=== PATIENT | male | born 1935 | race Caucasian/White ===

== ENCOUNTER → 2016-11-09 | Outpatient (CLI) | payer MEDICARE ==
[~2016-11-09] VITALS: Ht 177.8 cm; Wt 97.5 kg
[~2016-11-09] MED LIST: ANOR1AER IN; ASPI81CH PO; CALTCHW5 PO; CENTTAB PO; CHLO125TA PO; FISH100049 PO; MAGN1TAB25 PO; NS 1,000 ML IV SCH; PROPOFOL 200 MG/20 ML VIAL As Ordered ONE; VITA200038 PO
[2016-11-09 11:25] VITALS: BP 105/65
--- NOTE | 2016-11-09 11:29 | ROOR ---
Patient Name: Salvador Main Procedure Date: 11/09/2016 11:03 AM Date of : 1935 Age: 81 Room: [facility] Gender: Male Note Status: Finalized Procedure: Colonoscopy to Cecum Indications: Screening for colorectal malignant neoplasm Providers: Valentin Tripp MD Referring MD: Reina Hicks DO Requesting Provider: Medicines: Monitored Anesthesia Care Complications: No immediate complications. Procedure: Pre-Anesthesia Assessment: - The heart rate, respiratory rate, oxygen saturations, blood pressure, adequacy of pulmonary ventilation, and response to care were monitored throughout the procedure. The Colonoscope was introduced through the anus and advanced to the cecum, identified by appendiceal orifice and ileocecal valve. The colonoscopy was performed without difficulty. The patient tolerated the procedure well. The quality of the bowel preparation was excellent. Findings: The perianal and digital rectal examinations were normal. Non-bleeding internal hemorrhoids were found during retroflexion. The hemorrhoids were small and Grade I (internal hemorrhoids that do not prolapse). No other significant abnormalities were identified in a careful examination of the remainder of the colon. Multiple large diffuse angioectasias with typical arborization were found in the rectum. The exam was otherwise without abnormality. Impression: - Non-bleeding internal hemorrhoids. - Multiple colonic angioectasias. - The examination was otherwise normal. - No specimens collected. - Radiation proctitis. - The exam was otherwise normal to the cecum. Recommendation: - Patient has a contact number available for emergencies. The signs and symptoms of potential delayed complications were discussed with the patient. Return to normal activities tomorrow. Written discharge instructions were provided to the patient. - High fiber diet. - Discharge patient to home. - Continue present medications. - Repeat colonoscopy for symptoms only. - Return to referring physician. - The findings and recommendations were discussed with the patient's family. - Discharge patient to home. Valentin Tripp MD Valentin Tripp MD 11/09/2016 11:28:39 AM This report has been signed electronically. Number of Addenda: 0 Note Initiated On: 11/09/2016 11:03 AM Estimated Blood Loss: Estimated blood loss: none.
== END | disposition home or self-care (01) ==
LOC: M OPP 09:39
PROVIDERS: ATTEND Internal Medicine Gastroenterology
DX: Z12.11 Encounter for screening for malignant neoplasm of colon (principal); K64.0 First degree hemorrhoids; I10 Essential (primary) hypertension; M10.9 Gout, unspecified; M19.90 Unspecified osteoarthritis, unspecified site; J45.909 Unspecified asthma, uncomplicated; Z79.82 Long term (current) use of aspirin; Z79.899 Other long term (current) drug therapy

== ENCOUNTER → 2017-01-23 | Outpatient (REF) | payer MEDICARE ==
[~2017-01-23] MED LIST changes: -NS 1,000 ML IV SCH; -PROPOFOL 200 MG/20 ML VIAL As Ordered ONE
== END ==
LOC: M LAB REF 15:59
PROVIDERS: ATTEND Physician Assistant
DX: R30.0 Dysuria (principal)

== ENCOUNTER → 2017-03-17 | Outpatient (CLI) | payer MEDICARE | LOC: M LAB 07:40 | PROVIDERS: ATTEND Radiology Radiation Oncology | DX: C61 Malignant neoplasm of prostate (principal) ==

== ENCOUNTER → 2017-03-23 | Outpatient (CLI) | payer MEDICARE ==
--- NOTE | 2017-03-24 08:50 | RADONC ---
RADIATION ONCOLOGY FOLLOWUP NOTE DATE: 03/23/2017 CHART NUMBER: [id number] DIAGNOSIS: Prostate cancer. STAGE: I, [id number]. ECOG PERFORMANCE STATUS: 0. FOLLOWUP NOTE: Mr. 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 The patient presents today reporting that he is doing quite well with no complaints at this time related to his radiation therapy or disease. He is having no urinary or bowel difficulties and no bone pain. The patient's review of systems is noncontributory. He denies nausea, vomiting, fevers, chills, night sweats, diplopia, headaches, anxiety or depression, anorexia, weight loss, visual disturbances, chest pain, urinary or bowel difficulties, bone pain, or neurological problems. PHYSICAL EXAMINATION: The patient is a well-developed, well-nourished male in no acute distress. HEENT exam is normocephalic, atraumatic. Extraocular movements are intact. There is no palpable cervical, supraclavicular, infraclavicular, axillary, or inguinal lymphadenopathy present. Lungs are clear to auscultation and percussion. Heart has a regular rate and rhythm. Abdomen is benign with no hepatosplenomegaly, masses, or tenderness. Rectal examination reveals a normal anal sphincter tone. His prostate is smooth with no evidence of nodularity. Skeletal examination reveals no tenderness to pressure or percussion of the bony skeleton. Extremities reveal no clubbing, cyanosis, or edema. Neurologic exam is grossly intact as is the remainder of the physical examination. ASSESSMENT: The patient is clinically RAUL at this time and will be seen by us again in 1 year for further followup. He will also continue to be followed by his other physicians as well. cc: SHELLY Cotton MD
== END ==
LOC: M ONCR 13:57
PROVIDERS: ATTEND Radiology Radiation Oncology
DX: C61 Malignant neoplasm of prostate (principal)

== ENCOUNTER → 2018-03-30 | Outpatient (CLI) | payer MEDICARE ==
[2018-03-30 09:56] LABS: PROSTATIC SPECIFIC AG MONITOR 0.43 NG/ML (< 4.0)
== END ==
LOC: M LAB 09:08
DX: C61 Malignant neoplasm of prostate (principal)
CPT/HCPCS: 84153

== ENCOUNTER → 2018-04-06 | Outpatient (CLI) | payer MEDICARE | LOC: M ONCR 08:46 | DX: C61 Malignant neoplasm of prostate (principal) ==

== ENCOUNTER 2018-06-07 14:29 | Inpatient (IN) | payer MEDICARE ==
[2018-06-07] MEDS: GABAPENTIN 300 MG CAP PO ×2 (16:10→21:34)
[2018-06-07] MEDS: MORPHINE 2 MG/ML 1ML SYRINGE (J2270) IV (16:10)
[2018-06-07] MEDS: ONDANSETRON 4MG/2ML VIAL (J2405) IV (16:10)
[2018-06-07 16:47] LABS: BASO % 0.3 % (0.0-1.0); EOS # 0.1 10^3/uL (0.0-0.50); EOS % 0.7 % (0.0-3.0); HEMOGLOBIN 14.4 g/dl (13.5-17.5); IMMATURE GRANULOCYTE % 0.3 % (0-3.0); LYMPH # 1.1 10^3/uL (1.5-4.5); LYMPH % 15.3 % (24.0-44.0); MEAN CORPUSCULAR HEMOGLOBIN 28.1 pg (27.0-33.0); MEAN CORPUSCULAR HGB CONC 33.5 g/dl (32.0-36.5); MEAN CORPUSCULAR VOLUME 83.8 fl (80.0-96.0); MONO # 0.8 10^3/uL (0.0-0.8); MONO % 10.7 % (0.0-5.0); NEUTROPHILS # 5.3 10^3/uL (1.8-7.7); NEUTROPHILS % 72.7 % (36.0-66.0); PLATELET COUNT, AUTOMATED 188 10^3/uL (150-450); RED BLOOD COUNT 5.13 10^6/uL (4.30-6.10); RED CELL DISTRIBUTION WIDTH 14.2 % (11.5-14.5); WHITE BLOOD COUNT 7.3 10^3/uL (4.0-10.0)
[2018-06-07 17:05] LABS: ANION GAP 7 MEQ/L (8-16); BLOOD UREA NITROGEN 14 MG/DL (7-18); CALCIUM LEVEL 8.8 MG/DL (8.8-10.2); CARBON DIOXIDE LEVEL 32 MEQ/L (21-32); CHLORIDE LEVEL 97 MEQ/L (98-107); CREATININE FOR GFR 1.03 MG/DL (0.70-1.30); GLOMERULAR FILTRATION RATE > 60.0 (>35); GLUCOSE, FASTING 108 MG/DL (70-100); POTASSIUM SERUM 4.4 MEQ/L (3.5-5.1); SODIUM LEVEL 136 MEQ/L (136-145)
[2018-06-07] MEDS: ACYCLOVIR 1,000 MG in D5W 250 ML IV (17:09)
[2018-06-07] MEDS ORDERED: PERCOCET 5MG/325MG TAB PO (17:45)
[2018-06-07] MEDS ORDERED: ONDANSETRON 4MG/2ML VIAL (J2405) IV (17:45)
[2018-06-07] MEDS ORDERED: ONDANSETRON 4 MG TAB (S0181) PO (17:45)
[2018-06-07] MEDS: NS 1,000 ML IV (18:14)
[2018-06-07] MEDS ORDERED: IPRATROPIUM 0.5MG/ALBUTEROL 2.5MG INH SOL UD 3ML (DUONEB)(J7620) NEB (20:30)
[2018-06-07] MEDS ORDERED: METOCLOPRAMIDE INJ 10MG/2ML VIAL (J2765) IV (20:45)
[2018-06-07] MEDS: ERYTHROMYCIN OPHTH OINT OD (21:34)
[2018-06-08] MEDS ORDERED: ACYCLOVIR 1,000 MG in D5W 250 ML IV (01:00)
[2018-06-08] MEDS: ACYCLOVIR 1,000 MG in NS 250 ML IV ×3 (01:26→21:12)
[2018-06-08 06:38] LABS: BASO % 0.3 % (0.0-1.0); EOS # 0.1 10^3/uL (0.0-0.50); EOS % 1.3 % (0.0-3.0); HEMATOCRIT 42.7 % (42.0-52.0); HEMOGLOBIN 14.1 g/dl (13.5-17.5); IMMATURE GRANULOCYTE % 0.3 % (0-3.0); LYMPH # 2.2 10^3/uL (1.5-4.5); LYMPH % 23.1 % (24.0-44.0); MEAN CORPUSCULAR HEMOGLOBIN 27.7 pg (27.0-33.0); MEAN CORPUSCULAR VOLUME 83.9 fl (80.0-96.0); MONO # 1.4 10^3/uL (0.0-0.8); MONO % 14.4 % (0.0-5.0); NEUTROPHILS # 5.7 10^3/uL (1.8-7.7); NEUTROPHILS % 60.6 % (36.0-66.0); PLATELET COUNT, AUTOMATED 184 10^3/uL (150-450); RED BLOOD COUNT 5.09 10^6/uL (4.30-6.10); RED CELL DISTRIBUTION WIDTH 14.3 % (11.5-14.5); WHITE BLOOD COUNT 9.4 10^3/uL (4.0-10.0)
[2018-06-08 06:51] LABS: ANION GAP 7 MEQ/L (8-16); BLOOD UREA NITROGEN 17 MG/DL (7-18); CALCIUM LEVEL 8.5 MG/DL (8.8-10.2); CARBON DIOXIDE LEVEL 30 MEQ/L (21-32); CHLORIDE LEVEL 100 MEQ/L (98-107); CREATININE FOR GFR 1.51 MG/DL (0.70-1.30); GLOMERULAR FILTRATION RATE 47.5 (>35); GLUCOSE, FASTING 106 MG/DL (70-100); MAGNESIUM LEVEL 2.1 MG/DL (1.8-2.4); POTASSIUM SERUM 4.3 MEQ/L (3.5-5.1); SODIUM LEVEL 137 MEQ/L (136-145)
[2018-06-08] MEDS ORDERED: CHLORTHALIDONE 12.5MG PER 1/2 TABLET PO (09:00)
[2018-06-08] MEDS: MAGNESIUM OXIDE 400 MG TAB (MAG-OX) PO (09:41)
[2018-06-08] MEDS: GABAPENTIN 300 MG CAP PO ×3 (09:41→21:12)
[2018-06-08] MEDS: VITAMIN D 1,000 INTERNATIONAL UNITS TABLET PO (09:41)
[2018-06-08] MEDS: OMEGA-3 1050MG CAPSULE PO (09:41)
[2018-06-08] MEDS: TAMSULOSIN 0.4 MG CAP PO (09:41)
[2018-06-08] MEDS: ASPIRIN 81 MG ENTERIC TAB PO (09:41)
[2018-06-08] MEDS: ERYTHROMYCIN OPHTH OINT OD ×4 (09:42→21:12)
[2018-06-08] MEDS: MULTIVITAMINS/MINERALS THERAP 1 TAB PO (09:42)
[2018-06-08] MEDS: NS 1,000 ML IV ×2 (09:46→20:13)
[2018-06-08] MEDS: HEPARIN SOD (PORCINE) 5000 UNITS/ML VIAL SQ ×2 (14:59→21:12)
[2018-06-09] MEDS: HEPARIN SOD (PORCINE) 5000 UNITS/ML VIAL SQ ×3 (05:09→21:03)
[2018-06-09 06:39] LABS: BASO # 0.1 10^3/uL (0.0-0.2); BASO % 0.7 % (0.0-1.0); EOS # 0.3 10^3/uL (0.0-0.50); EOS % 3.2 % (0.0-3.0); HEMATOCRIT 39.1 % (42.0-52.0); HEMOGLOBIN 12.9 g/dl (13.5-17.5); IMMATURE GRANULOCYTE % 0.2 % (0-3.0); LYMPH # 1.4 10^3/uL (1.5-4.5); LYMPH % 16.7 % (24.0-44.0); MEAN CORPUSCULAR HEMOGLOBIN 28.1 pg (27.0-33.0); MEAN CORPUSCULAR VOLUME 85.2 fl (80.0-96.0); MONO # 1.2 10^3/uL (0.0-0.8); MONO % 14.4 % (0.0-5.0); NEUTROPHILS # 5.4 10^3/uL (1.8-7.7); NEUTROPHILS % 64.8 % (36.0-66.0); PLATELET COUNT, AUTOMATED 179 10^3/uL (150-450); RED BLOOD COUNT 4.59 10^6/uL (4.30-6.10); RED CELL DISTRIBUTION WIDTH 14.6 % (11.5-14.5); WHITE BLOOD COUNT 8.4 10^3/uL (4.0-10.0)
[2018-06-09 07:02] LABS: ANION GAP 5 MEQ/L (8-16); BLOOD UREA NITROGEN 21 MG/DL (7-18); CALCIUM LEVEL 8.4 MG/DL (8.8-10.2); CARBON DIOXIDE LEVEL 30 MEQ/L (21-32); CHLORIDE LEVEL 105 MEQ/L (98-107); CREATININE FOR GFR 1.75 MG/DL (0.70-1.30); GLUCOSE, FASTING 97 MG/DL (70-100); MAGNESIUM LEVEL 2.2 MG/DL (1.8-2.4); POTASSIUM SERUM 4.1 MEQ/L (3.5-5.1); SODIUM LEVEL 140 MEQ/L (136-145)
[2018-06-09] MEDS: ACYCLOVIR 1,000 MG in NS 250 ML IV ×2 (08:50→20:20)
[2018-06-09] MEDS: DOXYCYCLINE HYCLATE 100 MG TAB PO (08:51)
[2018-06-09] MEDS: ASPIRIN 81 MG ENTERIC TAB PO (08:51)
[2018-06-09] MEDS: GABAPENTIN 300 MG CAP PO ×2 (08:51→20:20)
[2018-06-09] MEDS: MULTIVITAMINS/MINERALS THERAP 1 TAB PO (08:51)
[2018-06-09] MEDS: VITAMIN D 1,000 INTERNATIONAL UNITS TABLET PO (08:52)
[2018-06-09] MEDS: OMEGA-3 1050MG CAPSULE PO (08:52)
[2018-06-09] MEDS: MAGNESIUM OXIDE 400 MG TAB (MAG-OX) PO (08:52)
[2018-06-09] MEDS: TAMSULOSIN 0.4 MG CAP PO (08:52)
[2018-06-09] MEDS: ERYTHROMYCIN OPHTH OINT OD ×2 (08:52→12:42)
[2018-06-09] MEDS: NS 1,000 ML IV ×2 (08:53→20:20)
[2018-06-09] MEDS: LORazepam 2 MG/ML VIAL (J2060) IV (12:41)
[2018-06-09] MEDS ORDERED: VANCOMYCIN HCL 750 MG, VIAL MATE ADAPTER 1 EACH in D5W 250 ML IV (14:45)
[2018-06-09 15:41] LABS: BASO % 0.3 % (0.0-1.0); EOS # 0.2 10^3/uL (0.0-0.50); HEMATOCRIT 43.1 % (42.0-52.0); HEMOGLOBIN 14.2 g/dl (13.5-17.5); IMMATURE GRANULOCYTE % 0.4 % (0-3.0); LYMPH # 1.5 10^3/uL (1.5-4.5); LYMPH % 16.4 % (24.0-44.0); MEAN CORPUSCULAR HEMOGLOBIN 28.2 pg (27.0-33.0); MEAN CORPUSCULAR HGB CONC 32.9 g/dl (32.0-36.5); MEAN CORPUSCULAR VOLUME 85.7 fl (80.0-96.0); MONO # 1.5 10^3/uL (0.0-0.8); NEUTROPHILS % 64.9 % (36.0-66.0); PLATELET COUNT, AUTOMATED 164 10^3/uL (150-450); RED BLOOD COUNT 5.03 10^6/uL (4.30-6.10); RED CELL DISTRIBUTION WIDTH 14.8 % (11.5-14.5); WHITE BLOOD COUNT 9.2 10^3/uL (4.0-10.0)
[2018-06-09 16:15] LABS: ALBUMIN 2.9 GM/DL (3.2-5.2); ALBUMIN/GLOBULIN RATIO 0.88 (1.00-1.93); ALKALINE PHOSPHATASE 59 U/L (45-117); ALT/SGPT 42 U/L (12-78); ANION GAP 7 MEQ/L (8-16); AST/SGOT 18 U/L (7-37); BILIRUBIN,TOTAL 0.5 MG/DL (0.2-1.0); BLOOD UREA NITROGEN 22 MG/DL (7-18); C REACTIVE PROTEIN QUANTITATIV 7.41 MG/DL (0.00-0.30); CALCIUM LEVEL 8.6 MG/DL (8.8-10.2); CARBON DIOXIDE LEVEL 31 MEQ/L (21-32); CHLORIDE LEVEL 104 MEQ/L (98-107); CK-MB VALUE MASS < 1.0 NG/ML (<3.6); CPK CREATINE PHOSPHOKINASE 42 U/L (39-308); CREATININE FOR GFR 1.91 MG/DL (0.70-1.30); GLOMERULAR FILTRATION RATE 36.2 (>35); GLUCOSE, FASTING 100 MG/DL (70-100); MB/CK RELATIVE INDEX 2.38 (< OR =4); POTASSIUM SERUM 4.2 MEQ/L (3.5-5.1); SODIUM LEVEL 142 MEQ/L (136-145); TOTAL PROTEIN 6.2 GM/DL (6.4-8.2); TROPONIN I 0.02 NG/ML (< 0.10)
[2018-06-09 16:15] LABS: LACTIC ACID SEPSIS PROTOCOL 1.7 MMOL/L (0.4-2.0)
[2018-06-09] MEDS: VANCOMYCIN HCL 1,000 MG, VIAL MATE ADAPTER 1 EACH in D5W 250 ML IV (16:55)
[2018-06-09] MEDS: METOPROLOL 5 MG/5 ML VIAL IV (16:55)
[2018-06-09] MEDS: CIPROFLOXACIN 0.3% OPHTH SOLN 2.5ML OU ×3 (17:02→21:03)
[2018-06-09] MEDS: METOPROLOL TART 25 MG TABLET PO ×2 (18:05→23:35)
[2018-06-09 18:09] LABS: ANION GAP 5 MEQ/L (8-16); BLOOD UREA NITROGEN 22 MG/DL (7-18); CALCIUM LEVEL 8.8 MG/DL (8.8-10.2); CARBON DIOXIDE LEVEL 32 MEQ/L (21-32); CHLORIDE LEVEL 103 MEQ/L (98-107); CREATININE FOR GFR 1.89 MG/DL (0.70-1.30); GLOMERULAR FILTRATION RATE 36.6 (>35); GLUCOSE, FASTING 100 MG/DL (70-100); POTASSIUM SERUM 4.2 MEQ/L (3.5-5.1); SODIUM LEVEL 140 MEQ/L (136-145)
[2018-06-09 18:57] LABS: URIC ACID 6.3 MG/DL (3.5-7.2)
[2018-06-09] MEDS: ACETAMINOPHEN TAB 650MG DOSE (2X325MG) PO (20:19)
[2018-06-09] MEDS: ARIPiprazole 2 MG TAB PO (20:20)
[2018-06-09 23:03] LABS: CK-MB VALUE MASS < 1.0 NG/ML (<3.6); CPK CREATINE PHOSPHOKINASE 39 U/L (39-308); MB/CK RELATIVE INDEX 2.56 (< OR =4); TROPONIN I 0.02 NG/ML (< 0.10)
[2018-06-10] MEDS: CIPROFLOXACIN 0.3% OPHTH SOLN 2.5ML OU ×6 (01:59→21:16)
[2018-06-10] MEDS: METOPROLOL TART 25 MG TABLET PO (05:13)
[2018-06-10 05:37] LABS: BASO % 0.4 % (0.0-1.0); EOS # 0.1 10^3/uL (0.0-0.50); EOS % 0.9 % (0.0-3.0); HEMATOCRIT 36.3 % (42.0-52.0); IMMATURE GRANULOCYTE % 0.6 % (0-3.0); LYMPH # 1.7 10^3/uL (1.5-4.5); LYMPH % 18.4 % (24.0-44.0); MEAN CORPUSCULAR HEMOGLOBIN 27.9 pg (27.0-33.0); MEAN CORPUSCULAR HGB CONC 32.2 g/dl (32.0-36.5); MEAN CORPUSCULAR VOLUME 86.4 fl (80.0-96.0); MONO # 1.3 10^3/uL (0.0-0.8); MONO % 14.5 % (0.0-5.0); NEUTROPHILS # 5.9 10^3/uL (1.8-7.7); NEUTROPHILS % 65.2 % (36.0-66.0); PLATELET COUNT, AUTOMATED 171 10^3/uL (150-450); RED CELL DISTRIBUTION WIDTH 14.7 % (11.5-14.5)
[2018-06-10 05:44] LABS: HEMOGLOBIN 11.7 g/dl (13.5-17.5)
[2018-06-10 05:48] LABS: ANION GAP 6 MEQ/L (8-16); BLOOD UREA NITROGEN 24 MG/DL (7-18); CALCIUM LEVEL 8.2 MG/DL (8.8-10.2); CARBON DIOXIDE LEVEL 28 MEQ/L (21-32); CHLORIDE LEVEL 108 MEQ/L (98-107); CREATININE FOR GFR 1.67 MG/DL (0.70-1.30); GLOMERULAR FILTRATION RATE 42.2 (>35); GLUCOSE, FASTING 113 MG/DL (70-100); MAGNESIUM LEVEL 2.2 MG/DL (1.8-2.4); POTASSIUM SERUM 4.1 MEQ/L (3.5-5.1); SODIUM LEVEL 142 MEQ/L (136-145)
[2018-06-10] MEDS: HEPARIN SOD (PORCINE) 5000 UNITS/ML VIAL SQ ×2 (06:11→15:02)
[2018-06-10] MEDS: NS 500 ML IV (08:17)
[2018-06-10] MEDS: ACYCLOVIR 1,000 MG in NS 250 ML IV ×2 (09:47→20:42)
[2018-06-10] MEDS: MULTIVITAMINS/MINERALS THERAP 1 TAB PO (09:50)
[2018-06-10] MEDS: TAMSULOSIN 0.4 MG CAP PO (09:50)
[2018-06-10] MEDS: OMEGA-3 1050MG CAPSULE PO (09:50)
[2018-06-10] MEDS: VITAMIN D 1,000 INTERNATIONAL UNITS TABLET PO (09:50)
[2018-06-10] MEDS: ASPIRIN 81 MG ENTERIC TAB PO (09:50)
[2018-06-10] MEDS: GABAPENTIN 300 MG CAP PO ×2 (09:51→20:43)
[2018-06-10] MEDS: MAGNESIUM OXIDE 400 MG TAB (MAG-OX) PO (09:51)
[2018-06-10] MEDS: predniSONE 20 MG TAB PO ×2 (11:17→20:43)
[2018-06-10 14:23] LABS: APPEARANCE, URINE HAZY (CLEAR); BACTERIA, URINE AUTO NEGATIVE (NEGATIVE); BILIRUBIN, URINE AUTO NEGATIVE (NEGATIVE); BLOOD, URINE BLOOD NEGATIVE (NEGATIVE); COLOR, URINE YELLOW (YELLOW); GLUCOSE, URINE (UA) AUTO NEGATIVE (NEGATIVE); KETONE, URINE AUTO NEGATIVE (NEGATIVE); LEUKOCYTE ESTERASE, URINE AUTO NEGATIVE (NEGATIVE); MUCUS, URINE SMALL (NEGATIVE); NITRITE, URINE AUTO NEGATIVE (NEGATIVE); PROTEIN, URINE AUTO NEGATIVE (NEGATIVE); RBC, URINE AUTO 1 /HPF (0-3); SQUAMOUS EPITHELIAL CELL UR AU 0 /HPF (0-6); UROBILINOGEN, URINE AUTO 0.2 mg/dL (0.0-2.0); WBC, URINE AUTO 1 /HPF (0-3)
[2018-06-10 14:43] LABS: CREATININE,RANDOM URINE 69.9 MG/DL
[2018-06-10] MEDS: VANCOMYCIN HCL 1,000 MG, VIAL MATE ADAPTER 1 EACH in D5W 250 ML IV (17:06)
[2018-06-10 17:35] LABS: UREA NITROGEN RANDOM URINE 495 MG/DL
[2018-06-10] MEDS ORDERED: HEPARIN SOD (PORCINE) 5000 UNITS/ML VIAL IV (19:15)
[2018-06-10 19:38] LABS: HEMATOCRIT 38.1 % (42.0-52.0); HEMOGLOBIN 12.5 g/dl (13.5-17.5); MEAN CORPUSCULAR HEMOGLOBIN 28.5 pg (27.0-33.0); MEAN CORPUSCULAR HGB CONC 32.8 g/dl (32.0-36.5); PLATELET COUNT, AUTOMATED 190 10^3/uL (150-450); RED BLOOD COUNT 4.38 10^6/uL (4.30-6.10); RED CELL DISTRIBUTION WIDTH 14.8 % (11.5-14.5); WHITE BLOOD COUNT 9.2 10^3/uL (4.0-10.0)
[2018-06-10] MEDS: HEPARIN DRIP 25,000 UNITS in APPROPRIATE DILUENT 1 EA IV (20:00)
[2018-06-10] MEDS: ARIPiprazole 2 MG TAB PO (20:43)
[2018-06-10] MEDS: MUPIROCIN 2% OINT 22 GM TUBE TOP (20:43)
[2018-06-11] MEDS: CIPROFLOXACIN 0.3% OPHTH SOLN 2.5ML OU ×6 (02:14→21:10)
[2018-06-11 04:03] LABS: HEMATOCRIT 34.6 % (42.0-52.0); HEMOGLOBIN 11.4 g/dl (13.5-17.5); IMMATURE GRANULOCYTE % 0.7 % (0-3.0); LYMPH # 1.2 10^3/uL (1.5-4.5); LYMPH % 11.9 % (24.0-44.0); MEAN CORPUSCULAR HEMOGLOBIN 28.2 pg (27.0-33.0); MEAN CORPUSCULAR HGB CONC 32.9 g/dl (32.0-36.5); MEAN CORPUSCULAR VOLUME 85.6 fl (80.0-96.0); MONO # 0.9 10^3/uL (0.0-0.8); MONO % 8.6 % (0.0-5.0); NEUTROPHILS # 8.1 10^3/uL (1.8-7.7); NEUTROPHILS % 78.8 % (36.0-66.0); PLATELET COUNT, AUTOMATED 179 10^3/uL (150-450); RED BLOOD COUNT 4.04 10^6/uL (4.30-6.10); RED CELL DISTRIBUTION WIDTH 14.7 % (11.5-14.5); WHITE BLOOD COUNT 10.3 10^3/uL (4.0-10.0)
[2018-06-11 04:25] LABS: PARTIAL THROMBOPLASTIN TIME 238.3 SECONDS (25.4-37.6)
[2018-06-11 04:30] LABS: ANION GAP 4 MEQ/L (8-16); BLOOD UREA NITROGEN 24 MG/DL (7-18); CALCIUM LEVEL 8.1 MG/DL (8.8-10.2); CARBON DIOXIDE LEVEL 28 MEQ/L (21-32); CHLORIDE LEVEL 105 MEQ/L (98-107); CREATININE FOR GFR 1.44 MG/DL (0.70-1.30); GLOMERULAR FILTRATION RATE 50.1 (>35); GLUCOSE, FASTING 138 MG/DL (70-100); MAGNESIUM LEVEL 2.2 MG/DL (1.8-2.4); POTASSIUM SERUM 4.2 MEQ/L (3.5-5.1); SODIUM LEVEL 137 MEQ/L (136-145)
[2018-06-11] MEDS: MAGNESIUM OXIDE 400 MG TAB (MAG-OX) PO (08:28)
[2018-06-11] MEDS: VITAMIN D 1,000 INTERNATIONAL UNITS TABLET PO (08:28)
[2018-06-11] MEDS: ASPIRIN 81 MG ENTERIC TAB PO (08:29)
[2018-06-11] MEDS: OMEGA-3 1050MG CAPSULE PO (08:29)
[2018-06-11] MEDS: GABAPENTIN 300 MG CAP PO ×2 (08:29→21:09)
[2018-06-11] MEDS: MULTIVITAMINS/MINERALS THERAP 1 TAB PO (08:29)
[2018-06-11] MEDS: predniSONE 20 MG TAB PO ×2 (08:29→21:09)
[2018-06-11] MEDS: TAMSULOSIN 0.4 MG CAP PO (08:29)
[2018-06-11] MEDS: ACYCLOVIR 1,000 MG in NS 250 ML IV ×2 (08:29→21:10)
[2018-06-11] MEDS: MUPIROCIN 2% OINT 22 GM TUBE TOP ×2 (08:30→21:11)
[2018-06-11 09:33] LABS: PARTIAL THROMBOPLASTIN TIME 116.7 SECONDS (25.4-37.6)
[2018-06-11] MEDS: HEPARIN DRIP 25,000 UNITS in APPROPRIATE DILUENT 1 EA IV (12:48)
[2018-06-11] MEDS: ceFAZolin SOD 1 GM in D5W MINI-BAG PLUS 50 ML IV ×2 (12:49→20:12)
[2018-06-11 16:13] LABS: PARTIAL THROMBOPLASTIN TIME 97.2 SECONDS (25.4-37.6)
[2018-06-11 19:30] LABS: PARTIAL THROMBOPLASTIN TIME 66.6 SECONDS (25.4-37.6)
[2018-06-11] MEDS: MIRALAX *UNIT DOSE* 17GM PACKET PO (21:09)
[2018-06-11] MEDS: DOCUSATE SODIUM 100 MG CAP PO (21:09)
[2018-06-11] MEDS: ARIPiprazole 2 MG TAB PO (21:09)
[2018-06-12] MEDS: CIPROFLOXACIN 0.3% OPHTH SOLN 2.5ML OU ×6 (02:00→21:12)
[2018-06-12] MEDS: ceFAZolin SOD 1 GM in D5W MINI-BAG PLUS 50 ML IV ×2 (04:38→11:41)
[2018-06-12 05:13] LABS: HEMATOCRIT 33.3 % (42.0-52.0); HEMOGLOBIN 10.9 g/dl (13.5-17.5); IMMATURE GRANULOCYTE % 1.1 % (0-3.0); LYMPH # 1.2 10^3/uL (1.5-4.5); MEAN CORPUSCULAR HEMOGLOBIN 27.9 pg (27.0-33.0); MEAN CORPUSCULAR HGB CONC 32.7 g/dl (32.0-36.5); MEAN CORPUSCULAR VOLUME 85.2 fl (80.0-96.0); MONO # 0.6 10^3/uL (0.0-0.8); MONO % 6.5 % (0.0-5.0); NEUTROPHILS # 7.7 10^3/uL (1.8-7.7); NEUTROPHILS % 80.4 % (36.0-66.0); PLATELET COUNT, AUTOMATED 222 10^3/uL (150-450); RED BLOOD COUNT 3.91 10^6/uL (4.30-6.10); RED CELL DISTRIBUTION WIDTH 15.1 % (11.5-14.5); WHITE BLOOD COUNT 9.6 10^3/uL (4.0-10.0)
[2018-06-12 05:30] LABS: ANION GAP 7 MEQ/L (8-16); BLOOD UREA NITROGEN 26 MG/DL (7-18); CALCIUM LEVEL 8.6 MG/DL (8.8-10.2); CARBON DIOXIDE LEVEL 28 MEQ/L (21-32); CHLORIDE LEVEL 107 MEQ/L (98-107); CREATININE FOR GFR 1.36 MG/DL (0.70-1.30); GLOMERULAR FILTRATION RATE 53.5 (>35); GLUCOSE, FASTING 135 MG/DL (70-100); MAGNESIUM LEVEL 2.5 MG/DL (1.8-2.4); POTASSIUM SERUM 4.1 MEQ/L (3.5-5.1); SODIUM LEVEL 142 MEQ/L (136-145)
[2018-06-12 05:31] LABS: PARTIAL THROMBOPLASTIN TIME 76.9 SECONDS (25.4-37.6)
[2018-06-12] MEDS: predniSONE 20 MG TAB PO (08:11)
[2018-06-12] MEDS: GABAPENTIN 300 MG CAP PO ×2 (08:12→21:11)
[2018-06-12] MEDS: OMEGA-3 1050MG CAPSULE PO (08:12)
[2018-06-12] MEDS: VITAMIN D 1,000 INTERNATIONAL UNITS TABLET PO (08:12)
[2018-06-12] MEDS: MIRALAX *UNIT DOSE* 17GM PACKET PO ×2 (08:12→21:11)
[2018-06-12] MEDS: MULTIVITAMINS/MINERALS THERAP 1 TAB PO (08:12)
[2018-06-12] MEDS: ALLOPURINOL 100 MG TAB PO (08:12)
[2018-06-12] MEDS: TAMSULOSIN 0.4 MG CAP PO (08:12)
[2018-06-12] MEDS: ASPIRIN 81 MG ENTERIC TAB PO (08:12)
[2018-06-12] MEDS: DOCUSATE SODIUM 100 MG CAP PO ×2 (08:12→21:11)
[2018-06-12] MEDS: ACYCLOVIR 1,000 MG in NS 250 ML IV (08:13)
[2018-06-12] MEDS: MUPIROCIN 2% OINT 22 GM TUBE TOP ×2 (08:14→21:12)
[2018-06-12] MEDS: MAGNESIUM OXIDE 400 MG TAB (MAG-OX) PO (09:00)
[2018-06-12] MEDS: amLODIPine 5 MG TAB PO (11:42)
[2018-06-12 17:26] LABS: CSF TUBE# GLU TUBE 2; CSF TUBE# TP TUBE 2; GLUCOSE CSF 71 MG/DL (40-75); TOTAL PROTEIN,CSF 29.3 MG/DL (15-45)
[2018-06-12 17:49] LABS: CSF MONONUCLEAR CELL % 97.8 % (0-0); CSF POLYMORPHONUCLEAR CELL % 2.2 % (0-0); CSF RBC < 2 10^3/uL (<2); CSF WBC 45 /uL (0-10)
[2018-06-12 17:50] LABS: CSF RBC < 2 10^3/uL (<2); CSF WBC 51 /uL (0-10)
[2018-06-12 17:55] LABS: APPEARANCE, CSF CLEAR (CLEAR); COLOR, CSF COLORLESS (COLORLESS); CSF DIFF IF INDICATED? YES (NO); CSF TUBE# CELL CNT TUBE 4
[2018-06-12 17:56] LABS: APPEARANCE, CSF CLEAR (CLEAR); COLOR, CSF COLORLESS (COLORLESS); CSF DIFF IF INDICATED? YES (NO); CSF TUBE# CELL CNT TUBE 1
[2018-06-12] MEDS: ARIPiprazole 2 MG TAB PO (21:11)
[2018-06-12] MEDS: ACETAMINOPHEN TAB 650MG DOSE (2X325MG) PO (21:12)
[2018-06-13] MEDS: CIPROFLOXACIN 0.3% OPHTH SOLN 2.5ML OU (01:58)
[2018-06-13] MEDS: GENTAMICIN 0.3% OPHTH SOL 5 ML BTL OU ×5 (05:36→21:46)
[2018-06-13 05:49] LABS: BASO % 0.1 % (0.0-1.0); EOS # 0.1 10^3/uL (0.0-0.50); EOS % 0.7 % (0.0-3.0); HEMATOCRIT 32.6 % (42.0-52.0); HEMOGLOBIN 10.9 g/dl (13.5-17.5); IMMATURE GRANULOCYTE % 1.3 % (0-3.0); LYMPH # 1.4 10^3/uL (1.5-4.5); MEAN CORPUSCULAR HEMOGLOBIN 28.2 pg (27.0-33.0); MEAN CORPUSCULAR HGB CONC 33.4 g/dl (32.0-36.5); MEAN CORPUSCULAR VOLUME 84.2 fl (80.0-96.0); MONO # 0.7 10^3/uL (0.0-0.8); MONO % 10.7 % (0.0-5.0); NEUTROPHILS # 4.5 10^3/uL (1.8-7.7); NEUTROPHILS % 66.2 % (36.0-66.0); PLATELET COUNT, AUTOMATED 226 10^3/uL (150-450); RED BLOOD COUNT 3.87 10^6/uL (4.30-6.10); RED CELL DISTRIBUTION WIDTH 15.5 % (11.5-14.5); WHITE BLOOD COUNT 6.8 10^3/uL (4.0-10.0)
[2018-06-13 06:15] LABS: ANION GAP 8 MEQ/L (8-16); BLOOD UREA NITROGEN 32 MG/DL (7-18); C REACTIVE PROTEIN QUANTITATIV 6.69 MG/DL (0.00-0.30); CALCIUM LEVEL 8.5 MG/DL (8.8-10.2); CARBON DIOXIDE LEVEL 27 MEQ/L (21-32); CHLORIDE LEVEL 107 MEQ/L (98-107); CREATININE FOR GFR 1.29 MG/DL (0.70-1.30); GLOMERULAR FILTRATION RATE 56.9 (>35); GLUCOSE, FASTING 85 MG/DL (70-100); MAGNESIUM LEVEL 2.2 MG/DL (1.8-2.4); POTASSIUM SERUM 4.2 MEQ/L (3.5-5.1); SODIUM LEVEL 142 MEQ/L (136-145)
[2018-06-13] MEDS: MUPIROCIN 2% OINT 22 GM TUBE TOP ×2 (09:22→20:11)
[2018-06-13] MEDS: ASPIRIN 81 MG ENTERIC TAB PO (09:23)
[2018-06-13] MEDS: VITAMIN D 1,000 INTERNATIONAL UNITS TABLET PO (09:23)
[2018-06-13] MEDS: amLODIPine 5 MG TAB PO (09:23)
[2018-06-13] MEDS: OMEGA-3 1050MG CAPSULE PO (09:24)
[2018-06-13] MEDS: DOCUSATE SODIUM 100 MG CAP PO ×2 (09:24→20:12)
[2018-06-13] MEDS: MAGNESIUM OXIDE 400 MG TAB (MAG-OX) PO (09:24)
[2018-06-13] MEDS: APIXABAN 2.5 MG TAB (ELIQUIS) PO ×2 (09:24→20:13)
[2018-06-13] MEDS: TAMSULOSIN 0.4 MG CAP PO (09:24)
[2018-06-13] MEDS: GABAPENTIN 300 MG CAP PO ×2 (09:24→20:13)
[2018-06-13] MEDS: ALLOPURINOL 100 MG TAB PO (09:24)
[2018-06-13] MEDS: MULTIVITAMINS/MINERALS THERAP 1 TAB PO (09:25)
[2018-06-13] MEDS: predniSONE 20 MG TAB PO (09:25)
[2018-06-13] MEDS: MIRALAX *UNIT DOSE* 17GM PACKET PO ×2 (09:25→20:11)
[2018-06-13] MEDS: ACETAMINOPHEN TAB 650MG DOSE (2X325MG) PO ×2 (09:31→20:13)
[2018-06-13] MEDS: ACYCLOVIR 1,000 MG in D5W 250 ML IV ×2 (11:14→21:46)
[2018-06-13] MEDS ORDERED: LIDOCAINE 1% MDV 20ML VIAL As Ordered (14:42)
[2018-06-13] MEDS: SODIUM CHLORIDE 0.9% INJ 10 ML SYR IV (19:09)
[2018-06-13] MEDS: ARIPiprazole 2 MG TAB PO (20:13)
[2018-06-14] MEDS: ACETAMINOPHEN TAB 650MG DOSE (2X325MG) PO ×4 (00:55→21:24)
[2018-06-14] MEDS: GENTAMICIN 0.3% OPHTH SOL 5 ML BTL OU ×6 (01:00→21:23)
[2018-06-14] MEDS: SODIUM CHLORIDE 0.9% INJ 10 ML SYR IV ×3 (05:52→17:08)
[2018-06-14 06:11] LABS: BASO % 0.1 % (0.0-1.0); EOS # 0.1 10^3/uL (0.0-0.50); EOS % 1.5 % (0.0-3.0); HEMATOCRIT 32.4 % (42.0-52.0); HEMOGLOBIN 10.5 g/dl (13.5-17.5); IMMATURE GRANULOCYTE % 0.9 % (0-3.0); LYMPH # 1.6 10^3/uL (1.5-4.5); LYMPH % 19.3 % (24.0-44.0); MEAN CORPUSCULAR HEMOGLOBIN 28.1 pg (27.0-33.0); MEAN CORPUSCULAR HGB CONC 32.4 g/dl (32.0-36.5); MEAN CORPUSCULAR VOLUME 86.6 fl (80.0-96.0); MONO # 0.9 10^3/uL (0.0-0.8); MONO % 10.4 % (0.0-5.0); NEUTROPHILS # 5.5 10^3/uL (1.8-7.7); NEUTROPHILS % 67.8 % (36.0-66.0); PLATELET COUNT, AUTOMATED 227 10^3/uL (150-450); RED BLOOD COUNT 3.74 10^6/uL (4.30-6.10); RED CELL DISTRIBUTION WIDTH 15.6 % (11.5-14.5); WHITE BLOOD COUNT 8.1 10^3/uL (4.0-10.0)
[2018-06-14 06:30] LABS: C REACTIVE PROTEIN QUANTITATIV 4.93 MG/DL (0.00-0.30)
[2018-06-14 06:31] LABS: ANION GAP 7 MEQ/L (8-16); BLOOD UREA NITROGEN 31 MG/DL (7-18); CALCIUM LEVEL 8.3 MG/DL (8.8-10.2); CARBON DIOXIDE LEVEL 31 MEQ/L (21-32); CHLORIDE LEVEL 106 MEQ/L (98-107); CREATININE FOR GFR 1.22 MG/DL (0.70-1.30); GLOMERULAR FILTRATION RATE > 60.0 (>35); GLUCOSE, FASTING 82 MG/DL (70-100); MAGNESIUM LEVEL 2.5 MG/DL (1.8-2.4); POTASSIUM SERUM 4.4 MEQ/L (3.5-5.1); SODIUM LEVEL 144 MEQ/L (136-145)
[2018-06-14] MEDS: TAMSULOSIN 0.4 MG CAP PO (08:02)
[2018-06-14] MEDS: predniSONE 20 MG TAB PO (08:02)
[2018-06-14] MEDS: ALLOPURINOL 100 MG TAB PO (08:02)
[2018-06-14] MEDS: MIRALAX *UNIT DOSE* 17GM PACKET PO ×2 (08:03→21:22)
[2018-06-14] MEDS: APIXABAN 2.5 MG TAB (ELIQUIS) PO ×2 (08:03→21:22)
[2018-06-14] MEDS: GABAPENTIN 300 MG CAP PO ×2 (08:03→21:22)
[2018-06-14] MEDS: OMEGA-3 1050MG CAPSULE PO (08:03)
[2018-06-14] MEDS: VITAMIN D 1,000 INTERNATIONAL UNITS TABLET PO (08:03)
[2018-06-14] MEDS: MULTIVITAMINS/MINERALS THERAP 1 TAB PO (08:03)
[2018-06-14] MEDS: ASPIRIN 81 MG ENTERIC TAB PO (08:03)
[2018-06-14] MEDS: DOCUSATE SODIUM 100 MG CAP PO (08:03)
[2018-06-14] MEDS: MUPIROCIN 2% OINT 22 GM TUBE TOP ×2 (08:18→21:23)
[2018-06-14] MEDS: SENOKOT S TAB PO ×2 (10:24→21:22)
[2018-06-14] MEDS: amLODIPine 5 MG TAB PO ×2 (10:24→10:41)
[2018-06-14] MEDS: MAGNESIUM CITRATE 300 ML BTL PO (10:24)
[2018-06-14] MEDS: ACYCLOVIR 1,000 MG in D5W 250 ML IV ×2 (10:25→21:22)
[2018-06-14] MEDS: FUROSEMIDE 20 MG/2 ML VIAL (J1940) IV (13:32)
[2018-06-14] MEDS: ARIPiprazole 2 MG TAB PO (21:22)
[2018-06-15] MEDS: GENTAMICIN 0.3% OPHTH SOL 5 ML BTL OU ×6 (02:12→21:50)
[2018-06-15] MEDS: ACETAMINOPHEN TAB 650MG DOSE (2X325MG) PO ×3 (02:49→18:49)
[2018-06-15] MEDS: SODIUM CHLORIDE 0.9% INJ 10 ML SYR IV ×3 (06:17→17:47)
[2018-06-15 06:39] LABS: HEMOGLOBIN 10.7 g/dl (13.5-17.5); MEAN CORPUSCULAR HEMOGLOBIN 28.2 pg (27.0-33.0); MEAN CORPUSCULAR HGB CONC 32.4 g/dl (32.0-36.5); MEAN CORPUSCULAR VOLUME 87.1 fl (80.0-96.0); PLATELET COUNT, AUTOMATED 248 10^3/uL (150-450); RED BLOOD COUNT 3.79 10^6/uL (4.30-6.10); RED CELL DISTRIBUTION WIDTH 15.5 % (11.5-14.5); WHITE BLOOD COUNT 8.6 10^3/uL (4.0-10.0)
[2018-06-15 07:00] LABS: ANION GAP 8 MEQ/L (8-16); BLOOD UREA NITROGEN 24 MG/DL (7-18); C REACTIVE PROTEIN QUANTITATIV 2.82 MG/DL (0.00-0.30); CALCIUM LEVEL 8.2 MG/DL (8.8-10.2); CARBON DIOXIDE LEVEL 31 MEQ/L (21-32); CHLORIDE LEVEL 103 MEQ/L (98-107); CREATININE FOR GFR 1.26 MG/DL (0.70-1.30); GLOMERULAR FILTRATION RATE 58.5 (>35); GLUCOSE, FASTING 83 MG/DL (70-100); MAGNESIUM LEVEL 2.4 MG/DL (1.8-2.4); POTASSIUM SERUM 4.4 MEQ/L (3.5-5.1); SODIUM LEVEL 142 MEQ/L (136-145)
[2018-06-15] MEDS: MULTIVITAMINS/MINERALS THERAP 1 TAB PO (08:06)
[2018-06-15] MEDS: VITAMIN D 1,000 INTERNATIONAL UNITS TABLET PO (08:06)
[2018-06-15] MEDS: TAMSULOSIN 0.4 MG CAP PO (08:08)
[2018-06-15] MEDS: ASPIRIN 81 MG ENTERIC TAB PO (08:08)
[2018-06-15] MEDS: APIXABAN 2.5 MG TAB (ELIQUIS) PO ×2 (08:08→21:48)
[2018-06-15] MEDS: predniSONE 20 MG TAB PO (08:08)
[2018-06-15] MEDS: SENOKOT S TAB PO ×2 (08:08→21:49)
[2018-06-15] MEDS: GABAPENTIN 300 MG CAP PO ×2 (08:08→21:48)
[2018-06-15] MEDS: OMEGA-3 1050MG CAPSULE PO (08:08)
[2018-06-15] MEDS: MUPIROCIN 2% OINT 22 GM TUBE TOP ×2 (08:09→21:49)
[2018-06-15] MEDS: MIRALAX *UNIT DOSE* 17GM PACKET PO ×2 (08:10→21:45)
[2018-06-15] MEDS: ALLOPURINOL 100 MG TAB PO (08:10)
[2018-06-15] MEDS: MAGNESIUM CITRATE 300 ML BTL PO (10:22)
[2018-06-15] MEDS: ACYCLOVIR 1,000 MG in D5W 250 ML IV ×2 (10:22→21:49)
[2018-06-15] MEDS: FUROSEMIDE 20 MG/2 ML VIAL (J1940) IV (10:23)
[2018-06-15] MEDS: ARIPiprazole 2 MG TAB PO (21:46)
[2018-06-16] MEDS: ACETAMINOPHEN TAB 650MG DOSE (2X325MG) PO ×3 (00:17→20:33)
[2018-06-16] MEDS: GENTAMICIN 0.3% OPHTH SOL 5 ML BTL OU ×6 (03:08→21:55)
[2018-06-16] MEDS: SODIUM CHLORIDE 0.9% INJ 10 ML SYR IV ×2 (05:11→17:38)
[2018-06-16 05:36] LABS: HEMATOCRIT 34.2 % (42.0-52.0); HEMOGLOBIN 11.1 g/dl (13.5-17.5); MEAN CORPUSCULAR HEMOGLOBIN 28.5 pg (27.0-33.0); MEAN CORPUSCULAR HGB CONC 32.5 g/dl (32.0-36.5); MEAN CORPUSCULAR VOLUME 87.7 fl (80.0-96.0); PLATELET COUNT, AUTOMATED 264 10^3/uL (150-450); RED CELL DISTRIBUTION WIDTH 15.5 % (11.5-14.5); WHITE BLOOD COUNT 9.6 10^3/uL (4.0-10.0)
[2018-06-16 05:54] LABS: ANION GAP 5 MEQ/L (8-16); BLOOD UREA NITROGEN 28 MG/DL (7-18); C REACTIVE PROTEIN QUANTITATIV 2.49 MG/DL (0.00-0.30); CALCIUM LEVEL 8.3 MG/DL (8.8-10.2); CARBON DIOXIDE LEVEL 34 MEQ/L (21-32); CHLORIDE LEVEL 102 MEQ/L (98-107); CREATININE FOR GFR 1.27 MG/DL (0.70-1.30); GLOMERULAR FILTRATION RATE 57.9 (>35); GLUCOSE, FASTING 82 MG/DL (70-100); MAGNESIUM LEVEL 2.5 MG/DL (1.8-2.4); POTASSIUM SERUM 4.4 MEQ/L (3.5-5.1); SODIUM LEVEL 141 MEQ/L (136-145)
[2018-06-16] MEDS: MORPHINE 4 MG/ML 1ML VIAL/SYRINGE (J2270) IV (06:44)
[2018-06-16] MEDS ORDERED: ALLOPURINOL 100 MG TAB PO (09:00)
[2018-06-16] MEDS: ACYCLOVIR 1,000 MG in D5W 250 ML IV ×2 (10:06→21:55)
[2018-06-16] MEDS: MIRALAX *UNIT DOSE* 17GM PACKET PO ×2 (10:06→20:34)
[2018-06-16] MEDS: GABAPENTIN 300 MG CAP PO ×2 (10:07→20:33)
[2018-06-16] MEDS: OMEGA-3 1050MG CAPSULE PO (10:07)
[2018-06-16] MEDS: ALLOPURINOL 100 MG TAB PO (10:08)
[2018-06-16] MEDS: APIXABAN 2.5 MG TAB (ELIQUIS) PO ×2 (10:08→20:33)
[2018-06-16] MEDS: VITAMIN D 1,000 INTERNATIONAL UNITS TABLET PO (10:08)
[2018-06-16] MEDS: MULTIVITAMINS/MINERALS THERAP 1 TAB PO (10:08)
[2018-06-16] MEDS: SENOKOT S TAB PO ×2 (10:08→20:34)
[2018-06-16] MEDS: ASPIRIN 81 MG ENTERIC TAB PO (10:08)
[2018-06-16] MEDS: TAMSULOSIN 0.4 MG CAP PO (10:08)
[2018-06-16] MEDS: MUPIROCIN 2% OINT 22 GM TUBE TOP ×2 (10:09→20:42)
[2018-06-16] MEDS: FUROSEMIDE 20 MG/2 ML VIAL (J1940) IV (11:49)
[2018-06-16] MEDS: ARIPiprazole 2 MG TAB PO (20:32)
[2018-06-16] MEDS: LISINOPRIL 10 MG TAB PO (20:33)
[2018-06-17] MEDS: GENTAMICIN 0.3% OPHTH SOL 5 ML BTL OU ×5 (01:35→19:50)
[2018-06-17] MEDS: SODIUM CHLORIDE 0.9% INJ 10 ML SYR IV ×2 (05:02→20:07)
[2018-06-17 06:32] LABS: HEMATOCRIT 35.5 % (42.0-52.0); HEMOGLOBIN 11.6 g/dl (13.5-17.5); MEAN CORPUSCULAR HEMOGLOBIN 28.5 pg (27.0-33.0); MEAN CORPUSCULAR HGB CONC 32.7 g/dl (32.0-36.5); MEAN CORPUSCULAR VOLUME 87.2 fl (80.0-96.0); PLATELET COUNT, AUTOMATED 295 10^3/uL (150-450); RED BLOOD COUNT 4.07 10^6/uL (4.30-6.10); RED CELL DISTRIBUTION WIDTH 15.7 % (11.5-14.5); WHITE BLOOD COUNT 8.4 10^3/uL (4.0-10.0)
[2018-06-17 07:00] LABS: ANION GAP 7 MEQ/L (8-16); BLOOD UREA NITROGEN 24 MG/DL (7-18); C REACTIVE PROTEIN QUANTITATIV 3.44 MG/DL (0.00-0.30); CALCIUM LEVEL 8.5 MG/DL (8.8-10.2); CARBON DIOXIDE LEVEL 33 MEQ/L (21-32); CHLORIDE LEVEL 102 MEQ/L (98-107); CREATININE FOR GFR 1.35 MG/DL (0.70-1.30); GLUCOSE, FASTING 76 MG/DL (70-100); MAGNESIUM LEVEL 2.3 MG/DL (1.8-2.4); POTASSIUM SERUM 4.7 MEQ/L (3.5-5.1); SODIUM LEVEL 142 MEQ/L (136-145)
[2018-06-17] MEDS: MIRALAX *UNIT DOSE* 17GM PACKET PO ×2 (09:00→20:06)
[2018-06-17] MEDS: ACYCLOVIR 1,000 MG in D5W 250 ML IV ×2 (09:24→20:06)
[2018-06-17] MEDS: APIXABAN 2.5 MG TAB (ELIQUIS) PO ×2 (09:25→20:07)
[2018-06-17] MEDS: ALLOPURINOL 100 MG TAB PO (09:25)
[2018-06-17] MEDS: VITAMIN D 1,000 INTERNATIONAL UNITS TABLET PO (09:25)
[2018-06-17] MEDS: ASPIRIN 81 MG ENTERIC TAB PO (09:25)
[2018-06-17] MEDS: GABAPENTIN 300 MG CAP PO ×2 (09:26→20:07)
[2018-06-17] MEDS: MULTIVITAMINS/MINERALS THERAP 1 TAB PO (09:26)
[2018-06-17] MEDS: SENOKOT S TAB PO ×2 (09:26→20:07)
[2018-06-17] MEDS: TAMSULOSIN 0.4 MG CAP PO (09:26)
[2018-06-17] MEDS: OMEGA-3 1050MG CAPSULE PO (09:26)
[2018-06-17] MEDS: MUPIROCIN 2% OINT 22 GM TUBE TOP ×2 (09:28→21:00)
[2018-06-17] MEDS: ACETAMINOPHEN TAB 650MG DOSE (2X325MG) PO (15:58)
[2018-06-17] MEDS ORDERED: LIDOCAINE 5% OINT 30 GM TOP (17:45)
[2018-06-17] MEDS: LIDOCAINE 5% OINT 30 GM TOP (18:11)
[2018-06-17] MEDS: ARIPiprazole 2 MG TAB PO (20:07)
== END 2018-06-17 21:54 | disposition home or self-care (01) | DRG 73 ==
LOC: M MSPAV 06-08 06:30 → M ED 14:29 → M ED INP 17:33 → M PCU 06-09 14:34 → M MSPAV 20:06
PROC: 009U3ZZ Drainage of Spinal Canal, Percutaneous Approach (ICD-10-PCS; 2018-06-12)
PROC: 02HV33Z Insertion of Infusion Device into Superior Vena Cava, Percutaneous Approach (ICD-10-PCS; principal; 2018-06-13)
DX: B02.0 Zoster encephalitis (principal); G93.41 Metabolic encephalopathy; N17.9 Acute kidney failure, unspecified; L03.211 Cellulitis of face; B02.30 Zoster ocular disease, unspecified; I48.92 Unspecified atrial flutter; R11.2 Nausea with vomiting, unspecified; M10.9 Gout, unspecified; D64.9 Anemia, unspecified; B95.61 Methicillin susceptible Staphylococcus aureus infection as the cause of diseases classified elsewhere; B02.29 Other postherpetic nervous system involvement; I10 Essential (primary) hypertension; E78.5 Hyperlipidemia, unspecified; M25.562 Pain in left knee; M79.672 Pain in left foot; E66.01 Morbid (severe) obesity due to excess calories; N40.1 Benign prostatic hyperplasia with lower urinary tract symptoms; J45.909 Unspecified asthma, uncomplicated; R44.1 Visual hallucinations; Z79.82 Long term (current) use of aspirin; Z79.899 Other long term (current) drug therapy; Z90.49 Acquired absence of other specified parts of digestive tract; Z85.46 Personal history of malignant neoplasm of prostate; Z68.31 Body mass index [BMI] 31.0-31.9, adult

== ENCOUNTER 2018-06-18 08:11 | Outpatient (CLI) | payer MEDICARE ==
[2018-06-18] MEDS: ACYCLOVIR 1,000 MG in NS 250 ML IV (09:19)
== END 2018-06-18 10:40 | disposition home or self-care (01) ==
LOC: M OPCLI5PR 08:11 → M MS5PR 08:24 → M OPCLI5PR 10:40
DX: B02.30 Zoster ocular disease, unspecified (principal); G93.41 Metabolic encephalopathy; N17.9 Acute kidney failure, unspecified; M10.9 Gout, unspecified; I48.92 Unspecified atrial flutter; I10 Essential (primary) hypertension; J45.909 Unspecified asthma, uncomplicated; Z79.82 Long term (current) use of aspirin; Z79.899 Other long term (current) drug therapy; Z85.46 Personal history of malignant neoplasm of prostate
CPT/HCPCS: J0133

== ENCOUNTER 2018-06-19 19:44 | Outpatient (CLI) | payer MEDICARE ==
[2018-06-19] MEDS: ACYCLOVIR 1,000 MG in NS 250 ML IV (20:47)
== END 2018-06-19 22:02 | disposition home or self-care (01) ==
LOC: M OPCLI5PR 19:44 → M MS5PR 19:46 → M OPCLI5PR 22:02
DX: G93.41 Metabolic encephalopathy (principal); N17.9 Acute kidney failure, unspecified; M10.9 Gout, unspecified; I48.92 Unspecified atrial flutter; I10 Essential (primary) hypertension; J45.909 Unspecified asthma, uncomplicated; Z79.82 Long term (current) use of aspirin; Z79.899 Other long term (current) drug therapy; Z85.46 Personal history of malignant neoplasm of prostate
CPT/HCPCS: J0133

== ENCOUNTER 2018-06-20 07:52 | Outpatient (CLI) | payer MEDICARE ==
[2018-06-20 10:41] LABS: HEMATOCRIT 32.9 % (42.0-52.0); HEMOGLOBIN 10.9 g/dl (13.5-17.5); MEAN CORPUSCULAR HEMOGLOBIN 28.5 pg (27.0-33.0); MEAN CORPUSCULAR HGB CONC 33.1 g/dl (32.0-36.5); MEAN CORPUSCULAR VOLUME 86.1 fl (80.0-96.0); PLATELET COUNT, AUTOMATED 289 10^3/uL (150-450); RED BLOOD COUNT 3.82 10^6/uL (4.30-6.10)
[2018-06-20 11:15] LABS: ANION GAP 7 MEQ/L (8-16); BLOOD UREA NITROGEN 19 MG/DL (7-18); C REACTIVE PROTEIN QUANTITATIV 2.79 MG/DL (0.00-0.30); CALCIUM LEVEL 8.7 MG/DL (8.8-10.2); CARBON DIOXIDE LEVEL 29 MEQ/L (21-32); CHLORIDE LEVEL 105 MEQ/L (98-107); CREATININE FOR GFR 1.16 MG/DL (0.70-1.30); GLOMERULAR FILTRATION RATE > 60.0 (>35); GLUCOSE, FASTING 102 MG/DL (70-100); POTASSIUM SERUM 3.8 MEQ/L (3.5-5.1); SODIUM LEVEL 141 MEQ/L (136-145)
[2018-06-20] MEDS: ACYCLOVIR 1,000 MG in NS 250 ML IV (11:21)
== END 2018-06-20 13:35 | disposition home or self-care (01) ==
LOC: M OPCLI5PR 07:52 → M MS5PR 08:08 → M OPCLI5PR 13:35
DX: B02.30 Zoster ocular disease, unspecified (principal); G93.41 Metabolic encephalopathy; N17.9 Acute kidney failure, unspecified; M10.9 Gout, unspecified; I10 Essential (primary) hypertension; J45.909 Unspecified asthma, uncomplicated; Z79.82 Long term (current) use of aspirin; Z79.899 Other long term (current) drug therapy; Z85.46 Personal history of malignant neoplasm of prostate
CPT/HCPCS: J0133

== ENCOUNTER 2018-06-21 19:21 | Outpatient (CLI) | payer MEDICARE ==
[2018-06-21] MEDS ORDERED: SODIUM CHLORIDE 0.9% INJ 10 ML SYR IV (20:15)
[2018-06-21] MEDS: ACYCLOVIR 1,000 MG in NS 250 ML IV (20:42)
== END 2018-06-21 22:17 | disposition home or self-care (01) ==
LOC: M OPCLI5PR 19:21 → M MS5PR 19:35 → M OPCLI5PR 22:17
DX: G93.41 Metabolic encephalopathy (principal); N17.9 Acute kidney failure, unspecified; M10.9 Gout, unspecified; I48.92 Unspecified atrial flutter; I10 Essential (primary) hypertension; Z79.82 Long term (current) use of aspirin; Z79.899 Other long term (current) drug therapy; Z85.46 Personal history of malignant neoplasm of prostate
CPT/HCPCS: J0133

== ENCOUNTER 2018-06-22 02:48 | Emergency (ER) | payer MEDICARE ==
[2018-06-22] MEDS: NORCO, ANEXSIA 5/325MG TABLET (HYDROcodone/ACETAMINOPHEN) PO (05:00)
[2018-06-22 05:30] LABS: ANION GAP 8 MEQ/L (8-16); BLOOD UREA NITROGEN 18 MG/DL (7-18); C REACTIVE PROTEIN QUANTITATIV 0.87 MG/DL (0.00-0.30); CALCIUM LEVEL 8.4 MG/DL (8.8-10.2); CARBON DIOXIDE LEVEL 27 MEQ/L (21-32); CHLORIDE LEVEL 107 MEQ/L (98-107); CREATININE FOR GFR 1.07 MG/DL (0.70-1.30); GLOMERULAR FILTRATION RATE > 60.0 (>35); GLUCOSE, FASTING 78 MG/DL (70-100); POTASSIUM SERUM 3.6 MEQ/L (3.5-5.1); SODIUM LEVEL 142 MEQ/L (136-145)
[2018-06-22] MEDS: OXYCODONE/APAP 5MG/325MG(BULK FOR ED) 1 TABLET PO (06:35)
== END 2018-06-22 06:49 | disposition home or self-care (01) ==
LOC: M ED 02:48
DX: B02.30 Zoster ocular disease, unspecified (principal); Z79.899 Other long term (current) drug therapy; Z79.01 Long term (current) use of anticoagulants

== ENCOUNTER 2018-06-22 07:42 | Outpatient (CLI) | payer MEDICARE ==
[2018-06-22] MEDS: ACYCLOVIR 1,000 MG in NS 250 ML IV (08:52)
== END 2018-06-22 10:40 | disposition home or self-care (01) ==
LOC: M OPCLI5PR 07:42 → M MS5PR 07:50 → M OPCLI5PR 10:40
DX: B02.30 Zoster ocular disease, unspecified (principal); G93.41 Metabolic encephalopathy; N17.9 Acute kidney failure, unspecified; M10.9 Gout, unspecified; I48.92 Unspecified atrial flutter; J44.9 Chronic obstructive pulmonary disease, unspecified; I10 Essential (primary) hypertension; Z79.82 Long term (current) use of aspirin; Z79.899 Other long term (current) drug therapy; Z85.46 Personal history of malignant neoplasm of prostate
CPT/HCPCS: J0133

== ENCOUNTER 2018-06-24 21:19 | Emergency (ER) | payer MEDICARE ==
[2018-06-24] MEDS: methylPREDNISolone INJ 125 MG/2 ML VIAL (J2930) IV (23:42)
[2018-06-24] MEDS: MORPHINE 2 MG/ML 1ML SYRINGE (J2270) IV (23:45)
[2018-06-25] MEDS: NORCO 5/325MG TABLET (BULK FOR ED) PO (00:50)
== END 2018-06-25 00:54 | disposition home or self-care (01) ==
LOC: M ED 06-25 00:54
DX: B02.29 Other postherpetic nervous system involvement (principal); J44.9 Chronic obstructive pulmonary disease, unspecified; J45.909 Unspecified asthma, uncomplicated; Z86.19 Personal history of other infectious and parasitic diseases; Z79.899 Other long term (current) drug therapy; Z85.46 Personal history of malignant neoplasm of prostate
CPT/HCPCS: J2930

== ENCOUNTER → 2018-06-27 | Outpatient (REF) | payer MEDICARE ==
[2018-06-27 20:03] LABS: URIC ACID 4.9 MG/DL (3.5-7.2)
== END ==
LOC: M LAB REF 17:08
DX: M10.9 Gout, unspecified (principal)
CPT/HCPCS: 84550

== ENCOUNTER → 2019-04-06 | Outpatient (CLI) | payer MEDICARE ==
[~2019-04-06] MED LIST changes: +ALLO10TA PO; -ANOR1AER IN; +ANOR1AER INH; +ARIP1TAB4 PO; -ASPI81CH PO; +ASPI81CH49 PO; +CHLO25TA PO; +ELIQ2.5T PO; +ERYT1OIN26 OD; +FLOM0.4C39 PO; +GABA-843 PO; +GENT0.3S36 OU; +HYDR-3715 PO; +LIDO5CRE6 TOP; -MAGN1TAB25 PO; +MAGN1TAB26 PO; +MUPI2OI TOP; +PRED50TA PO; +TRAM50TA2 PO; +VALT1TAB PO
== END ==
LOC: M LAB 08:58
PROVIDERS: ATTEND Radiology Radiation Oncology
DX: C61 Malignant neoplasm of prostate (principal)

== ENCOUNTER → 2019-04-11 | Outpatient (CLI) | payer MEDICARE ==
--- NOTE | 2019-04-12 08:56 | RADONC ---
RADIATION ONCOLOGY FOLLOWUP NOTE DATE: 04/11/2019 CHART #: [id number] DIAGNOSIS: Prostate cancer. STAGE: I, [id number]. ECOG PERFORMANCE STATUS: 0. FOLLOWUP NOTE: Mr. Solorio is an 83-year-old man who underwent treatment for a stage I, [id number], moderately differentiated adenocarcinoma of the prostate, [place] 6 (3+3). He comes to us today for a followup visit 6 years post completion of external beam radiotherapy. He has no complaints referable to his disease or to his treatments, but has recently undergone a hospitalization for shingles. REVIEW OF SYSTEMS: He denies any nausea, vomiting, diarrhea, dysuria, hematuria or blood per rectum. His energy level is essentially unchanged and he is able to maintain his day-to-day activities without any significant alteration of his lifestyle. Skin irritation is denied. EXAMINATION FINDINGS: The patient is a well-developed, well-nourished male in no acute distress. HEENT: Normocephalic. EOMs intact. PERRLA. Fundi benign. Lymphatics: No palpable peripheral lymphadenopathy is appreciated. Lungs are clear to auscultation and percussion. Heart: Regular without murmurs. Abdomen: Without evidence of hepatomegaly, masses, deep abdominal tenderness. Extremities: Without cyanosis, clubbing or edema. Neurologic Examination: Physiologic. Rectal Examination: Deferred at the patient's request. PSA revealed a level of 0.44 . which is stable. ASSESSMENT: The patient is clinically RAUL at this time and would like to see him again in approximately 1 year. cc: SHELLY Cotton MD [facility]
== END ==
LOC: M ONCR 13:38
PROVIDERS: ATTEND Radiology Radiation Oncology
DX: Z08 Encounter for follow-up examination after completed treatment for malignant neoplasm (principal); Z85.46 Personal history of malignant neoplasm of prostate; Z92.3 Personal history of irradiation

== ENCOUNTER → 2019-05-29 | Outpatient (REF) | payer MEDICARE | LOC: M LAB REF 17:23 | PROVIDERS: ATTEND Internal Medicine | DX: M10.9 Gout, unspecified (principal) ==

== ENCOUNTER → 2019-11-27 | Outpatient (REF) | payer MEDICARE | LOC: M LAB REF 12:33 | PROVIDERS: ATTEND Internal Medicine | DX: M10.9 Gout, unspecified (principal) ==

== ENCOUNTER → 2020-04-03 | Outpatient (CLI) | payer MEDICARE ==
[~2020-04-03] MED LIST changes: -ERYT1OIN26 OD; +ERYT5OIN25 OD; +GABA-282 PO; -GABA-843 PO
== END ==
LOC: M LAB 09:35
PROVIDERS: ATTEND Radiology Radiation Oncology
DX: C61 Malignant neoplasm of prostate (principal)

== ENCOUNTER → 2020-04-09 | Outpatient (CLI) | payer MEDICARE ==
[~2020-04-09] MED LIST changes: -GABA-282 PO; +GABA-843 PO
--- NOTE | 2020-04-15 12:42 | RADONC ---
RADIATION ONCOLOGY DATE: 04/09/2020 CHART NUMBER: [id number] DIAGNOSIS: Prostate CA. STAGE: Stage I, T1c N0 M0. Mr. Solorio is an 84-year-old gentleman who had the diagnosis of prostate CA stage I T1c N0 M0, [place] score of 6 (3+3). He completed external pope radiation therapy about 7 years ago. He has no complaints on his disease. He had shingles, which required hospitalization about 2 years ago. REVIEW OF SYSTEMS: He has no , GI symptoms. Denies any bone pain. Denies diarrhea or constipation or abdominal pain. Denies headache, nausea, vomiting. PHYSICAL EXAMINATION: Patient is well-developed, nourished male not in apparent distress. HEENT: Normocephalic. Lungs are clear. Heart is a rhythm and rate. There is no bony tenderness over the spine or rib cages. Extremities: No swelling, cyanosis or clubbing. Overall, 84 gentleman who has stage I prostate CA status post external radiation therapy completed 7 years ago. He is currently RAUL. Last PSA on 04/03/2020 was 0.51. He was advised continuous followup care with his primary care physicians with followup PSA test. He is discharged from our care. However, he can contact us if it is needed. [facility]
== END ==
LOC: M ONCR 13:52
PROVIDERS: ATTEND Radiology Radiation Oncology
DX: C61 Malignant neoplasm of prostate (principal)

== ENCOUNTER 2022-02-02 07:58 | Emergency (ER) | payer MEDICARE ==
[~2022-02-02] VITALS: Ht 177.8 cm; Wt 92.0 kg
[~2022-02-02 07:58] MED LIST changes: +GABA-282 PO; -GABA-843 PO
[2022-02-02] MEDS ORDERED: NS 1,000 ML IV ONE (09:10)
[2022-02-02] MEDS ORDERED: GI COCKTAIL 50ML BTL(HYOSCYAMINE/MAALOX/LIDOCAINE VISCOUS)(1:3:1) PO ONE (09:10)
[2022-02-02 09:29] LABS: BASO % 0.6 % (0.0-1.0); EOS # 0.2 10^3/uL (0.0-0.5); EOS % 2.4 % (0.0-3.0); HEMATOCRIT 45.3 % (42.0-52.0); HEMOGLOBIN 14.9 g/dl (13.5-17.5); LYMPH # 1.3 10^3/uL (1.5-5.0); LYMPH % 21.2 % (24.0-44.0); MEAN CORPUSCULAR HEMOGLOBIN 28.3 pg (27.0-33.0); MEAN CORPUSCULAR HGB CONC 32.9 g/dl (32.0-36.5); MONO # 0.9 10^3/uL (0.0-0.8); MONO % 14.7 % (2.0-8.0); NEUTROPHILS # 3.8 10^3/uL (1.5-8.5); NEUTROPHILS % 60.8 % (36.0-66.0); PLATELET COUNT, AUTOMATED 232 10^3/uL (150-450); RED BLOOD COUNT 5.27 10^6/uL (4.30-6.10); WHITE BLOOD COUNT 6.3 10^3/uL (4.0-10.0)
[2022-02-02 09:55] LABS: ALBUMIN 3.7 GM/DL (3.2-5.2); ALT/SGPT 32 U/L (12-78); AMYLASE 22 U/L (25-115); BILIRUBIN,DIRECT 0.2 MG/DL (0.0-0.2); BILIRUBIN,TOTAL 0.6 MG/DL (0.2-1.0); BLOOD UREA NITROGEN 16 MG/DL (7-18); CALCIUM LEVEL 9.3 MG/DL (8.8-10.2); CARBON DIOXIDE LEVEL 28 MEQ/L (21-32); CHLORIDE LEVEL 104 MEQ/L (98-107); CK-MB VALUE MASS 1.4 NG/ML (<3.6); CREATININE FOR GFR 1.02 MG/DL (0.70-1.30); GLOMERULAR FILTRATION RATE > 60.0 (>35); GLUCOSE, FASTING 89 MG/DL (70-100); LIPASE 38 U/L (73-393); MB/CK RELATIVE INDEX 3.04 (< OR =4); POTASSIUM SERUM 4.3 MEQ/L (3.5-5.1); SODIUM LEVEL 139 MEQ/L (136-145); TOTAL PROTEIN 7.3 GM/DL (6.4-8.2)
[2022-02-02 10:27] LABS: RSV AMPLIFICATION NEGATIVE (NEGATIVE)
[2022-02-02] MEDS ORDERED: ISOVUE-370 76% 100ML VIAL As Ordered ONE (10:44)
[2022-02-02] MEDS ORDERED: PERCOCET 5MG/325MG TAB PO ONE (12:55)
[2022-02-02] MEDS ORDERED: PERC5TAB12 PO (15:14)
[2022-02-02] MEDS ORDERED: ONDA4TAB6 PO (15:14)
[2022-02-02 15:47] VITALS: BP 178/88
== END 2022-02-02 15:55 | disposition home or self-care (01) ==
LOC: M ED 07:58
DX: R10.11 Right upper quadrant pain (principal); J44.9 Chronic obstructive pulmonary disease, unspecified; Z87.442 Personal history of urinary calculi; Z85.46 Personal history of malignant neoplasm of prostate; R93.422 Abnormal radiologic findings on diagnostic imaging of left kidney; Z79.01 Long term (current) use of anticoagulants; Z79.899 Other long term (current) drug therapy
CPT/HCPCS: 71045; 74177; 80048; 80076; 81001; 82150; 82550; 82553; 83605; 83690; 84484; 85025; 87631; 93005; 93041; 99284; Q9967

== ENCOUNTER 2022-03-14 05:45 | Emergency (ER) | payer MEDICARE ==
[~2022-03-14] VITALS: Ht 177.8 cm; Wt 88.6 kg
[~2022-03-14 05:45] MED LIST changes: +ONDA4TAB6 PO; +PERC5TAB12 PO
[2022-03-14] MEDS ORDERED: MORPHINE 2 MG/ML 1ML VIAL IV ONE (07:45)
[2022-03-14] MEDS ORDERED: ONDANSETRON 4MG 2ML VIAL IV ONE (08:15)
[2022-03-14] MEDS ORDERED: ONDANSETRON 4MG 2ML VIAL As Ordered ONE (08:16)
[2022-03-14 08:23] LABS: BASO % 0.3 % (0.0-1.0); EOS # 0.1 10^3/uL (0.0-0.5); EOS % 0.7 % (0.0-3.0); HEMATOCRIT 45.5 % (42.0-52.0); HEMOGLOBIN 14.9 g/dl (13.5-17.5); LYMPH # 1.2 10^3/uL (1.5-5.0); MEAN CORPUSCULAR HEMOGLOBIN 27.4 pg (27.0-33.0); MEAN CORPUSCULAR HGB CONC 32.7 g/dl (32.0-36.5); MEAN CORPUSCULAR VOLUME 83.8 fl (80.0-96.0); MONO % 24.5 % (2.0-8.0); NEUTROPHILS # 5.4 10^3/uL (1.5-8.5); NEUTROPHILS % 60.9 % (36.0-66.0); PLATELET COUNT, AUTOMATED 233 10^3/uL (150-450); RED BLOOD COUNT 5.43 10^6/uL (4.30-6.10); WHITE BLOOD COUNT 8.8 10^3/uL (4.0-10.0)
[2022-03-14 08:55] LABS: MONO # 2.2 10^3/uL (0.0-0.8)
[2022-03-14 09:56] LABS: ALBUMIN 2.5 GM/DL (3.2-5.2); ALT/SGPT 66 U/L (12-78); BILIRUBIN,DIRECT < 0.1 MG/DL (0.0-0.2); BILIRUBIN,TOTAL 0.5 MG/DL (0.2-1.0); BLOOD UREA NITROGEN 42 MG/DL (7-18); CALCIUM LEVEL 10.1 MG/DL (8.8-10.2); CARBON DIOXIDE LEVEL 26 MEQ/L (21-32); CHLORIDE LEVEL 98 MEQ/L (98-107); CREATININE FOR GFR 1.41 MG/DL (0.70-1.30); GLOMERULAR FILTRATION RATE 50.9 (>35); GLUCOSE, FASTING 104 MG/DL (70-100); LIPASE 57 U/L (73-393); SODIUM LEVEL 135 MEQ/L (136-145); TOTAL PROTEIN 6.4 GM/DL (6.4-8.2)
[2022-03-14] MEDS ORDERED: ISOVUE-370 76% 100ML VIAL As Ordered ONE (11:15)
[2022-03-14] MEDS ORDERED: SOD POLYSTYRENE SULFONATE SUSP 15GM 60ML UD PO ONE (12:15)
[2022-03-14 12:30] VITALS: BP 117/70
== END 2022-03-14 12:47 | disposition home or self-care (01) ==
LOC: M ED 05:45
DX: R19.00 Intra-abdominal and pelvic swelling, mass and lump, unspecified site (principal); E87.5 Hyperkalemia; I44.0 Atrioventricular block, first degree; C61 Malignant neoplasm of prostate; Z87.442 Personal history of urinary calculi; I48.91 Unspecified atrial fibrillation; Z79.899 Other long term (current) drug therapy

== ENCOUNTER 2022-03-14 16:47 | Emergency (ER) | payer MEDICARE ==
[2022-03-14] MEDS: SODIUM BICARBONATE 100 MEQ in D5W 1,000 ML IV SCH ×2 (16:52→18:36)
[2022-03-14] MEDS ORDERED: NOREPINEPHRINE 4 MG/4 ML AMP As Ordered ONE (16:57)
[2022-03-14] MEDS ORDERED: EPINEPHrine 1MG/10ML SYRINGE 1.5IN IV STA ×8 (16:59→18:00)
[2022-03-14] MEDS ORDERED: SODIUM BICARBONATE 8.4% INJ 50 ML SYRINGE IV STA ×5 (16:59→18:15)
[2022-03-14] MEDS ORDERED: NOREPINEPHRINE BITARTRATE 8 MG in D5W 492 ML IV SCH (17:00)
[2022-03-14 17:52] LABS: HEMATOCRIT 39.6 % (42.0-52.0); MEAN CORPUSCULAR HGB CONC 30.3 g/dl (32.0-36.5); MEAN CORPUSCULAR VOLUME 92.5 fl (80.0-96.0); PLATELET COUNT, AUTOMATED 150 10^3/uL (150-450); RED BLOOD COUNT 4.28 10^6/uL (4.30-6.10); WHITE BLOOD COUNT 15.6 10^3/uL (4.0-10.0)
[2022-03-14] MEDS ORDERED: ATROPINE SULF 0.4 MG/ML 1ML VIAL (J0461) IV STA (18:16)
[2022-03-14 18:20] LABS: PROTHROMBIN TIME 23.1 SECONDS (12.7-14.5)
[2022-03-14 18:21] LABS: CK-MB VALUE MASS 30.2 NG/ML (<3.6); MB/CK RELATIVE INDEX 4.36 (< OR =4); PARTIAL THROMBOPLASTIN TIME 74.2 SECONDS (25.9-37.0)
[2022-03-14 18:32] LABS: ALBUMIN 1.6 GM/DL (3.2-5.2); BILIRUBIN,DIRECT 0.3 MG/DL (0.0-0.2); BILIRUBIN,TOTAL 0.5 MG/DL (0.2-1.0); CREATININE FOR GFR 2.05 MG/DL (0.70-1.30); FREE T4 0.92 NG/DL (0.76-1.46); POTASSIUM SERUM 5.5 MEQ/L (3.5-5.1); THYROID STIMULATING HORMONE 17.5 uIU/ML (0.358-3.740); TOTAL PROTEIN 4.6 GM/DL (6.4-8.2)
[2022-03-14 19:01] LABS: ATYPICAL LYMPH 6 % (0-5); BASOPHILS 3 % (0-1); EOSINOPHILS 2 % (0-3); LYMPHOCYTES 56 % (16-44); METAMYELOCYTES 2 % (0-0); MONOCYTES 2 % (0-5); NEUTROPHILS 26 % (28-66)
[2022-03-14 19:02] LABS: ANISOCYTOSIS 1+; OVALOCYTES 1+; PLATELET ESTIMATE NORMAL (NORMAL); POIKILOCYTOSIS 1+; POLYCHROMASIA 1+
[2022-03-14 19:03] LABS: PLATELET CLUMPS SMALL AMT
[2022-03-14 21:35] LABS: RSV AMPLIFICATION NEGATIVE (NEGATIVE)
== END 2022-03-14 22:11 | disposition expired ==
LOC: M ED 16:47 → EDBD 16:47 → EDSEX 16:47 → M ED 22:11
DX: I46.9 Cardiac arrest, cause unspecified (principal); I48.91 Unspecified atrial fibrillation; I45.10 Unspecified right bundle-branch block; R19.00 Intra-abdominal and pelvic swelling, mass and lump, unspecified site; C61 Malignant neoplasm of prostate; Z87.442 Personal history of urinary calculi; Z79.899 Other long term (current) drug therapy
CPT/HCPCS: 74177; 80047; 80048; 80076; 81001; 82550; 82553; 83690; 84132; 84439; 84443; 84484; 85025; 85610; 85730; 87631; 92950; 93005; 93041; 96374; 96375; 96376; 99285; J0171; J0461; J2270; J2405; Q9967